=== PATIENT | female | born 1980 | race Hispanic/Latino ===

== ENCOUNTER 2022-02-14 10:35 | Day surgery (SDC) | payer OTHER ==
[2022-02-12 13:09] LABS: Hematocrit 49.5 % (30.3-42.9); Hemoglobin 16.9 gm/dl (10.1-14.3); Mean Corpuscular HGB Conc 34 % (30-34); Mean Corpuscular Volume 101 fl (79-97); Platelet Count 202 K/mm3 (140-440); Red Blood Count 4.89 M/mm3 (3.65-5.03); Red Cell Distribution Width 13.8 % (13.2-15.2)
[2022-02-12 13:27] LABS: Blood Urea Nitrogen 14 mg/dL (7-17); Calcium 8.8 mg/dL (8.4-10.2); Hemolysis Index 16
[2022-02-12 14:06] LABS: BUN/Creatinine Ratio 20
[~2022-02-14 10:35] MED LIST: LACTATED RINGERS 1,000 ML IV SCH
[2022-02-14] MEDS ORDERED: SCOPOLAMINE TRANSDERMAL PATCH 72 HR TD ONE (11:26)
[2022-02-14] MEDS ORDERED: oxyCODONE /ACETAMINOPHEN 5-325MG TAB PO PRN (11:37)
[2022-02-14] MEDS ORDERED: HYDROmorphone 0.5 MG/0.5 ML INJ IV PRN (11:37)
[2022-02-14] MEDS ORDERED: ONDANSETRON 4 MG/2 ML INJ IV PRN (11:37)
--- NOTE | 2022-02-14 11:38 | Anesthesia Day of Surgery ---
Anesthesia Day of Surgery - Day of Surgery Patient Examined: Yes Patient H&P Reviewed: Yes Patient is NPO: Yes Beta Blockers: No Cardiac Clearance: No (n/a) Pulmonary Clearance: No (n/a) Shawn's Test: N/A (patient edentulous upper/lower; mallampati II)
--- NOTE | 2022-02-14 11:42 | Anesthesia Consultation ---
Anesthesia Consult and Med Hx Date of service: 02/14/22 - Airway Anesthetic Teeth Evaluation: Edentulous ROM Head & Neck: Adequate Mental/Hyoid Distance: Adequate Mallampati Class: Class II Intubation Access Assessment: Good - Pulmonary Exam CTA: Yes (will take inhaler pre-op) - Cardiac Exam Cardiac Exam: No Murmur - Pre-Operative Health Status ASA Pre-Surgery Classification: ASA3 Proposed Anesthetic Plan: General - Pulmonary Hx Smoking: Yes (SMALL CIGARS- APPROX 10 A DAY; last cigar today DOS) Hx Asthma: Yes (USED INHALER LAST SAT. 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) Hx Peripheral Vascular Disease: No - Central Nervous System Hx Neuromuscular Disorder: No Hx Seizures: No CVA: No Hx Back Pain: Yes (CHRONIC PAIN) Hx Psychiatric Problems: Yes (PTSD,OCD) - Gastrointestinal Hx Ulcer: No Hx Gastroesophageal Reflux Disease: Yes (takes omeprazole; last dose last night 02/13/22) - Endocrine Hx Renal Disease: No Hx End Stage Renal Disease: No Hx Cirrhosis: No Hx Liver Disease: No Hx Insulin Dependent Diabetes: No Hx Non-Insulin Dependent Diabetes: No Hx Thyroid Disease: No Hx Hypothyroidism: No Hx Hyperthyroidism: No - Hematic Hx Anemia: No Hx Sickle Cell Disease: No - Other Systems Hx Alcohol Use: Yes (OCC.) Hx Substance Use: No Hx Cancer: No Hx Obesity: No
[2022-02-14] MEDS ORDERED: SCOPOLAMINE TRANSDERMAL PATCH 72 HR TD NR (13:00)
[2022-02-14] MEDS ORDERED: propofoL 200 MG/20 ML VIAL IV ONE (14:02)
[2022-02-14] MEDS ORDERED: LIDOCAINE MPF (2%) 20 MG/1 ML VIAL 5 ML ONE (14:02)
[2022-02-14] MEDS ORDERED: HYDROmorphone 1 MG/1 ML INJ ONE (14:02)
[2022-02-14] MEDS ORDERED: fentaNYL 100 MCG/2 ML INJ ONE (14:02)
[2022-02-14] MEDS ORDERED: dexAMETHasone 20 MG/5 ML VIAL ONE (14:07)
[2022-02-14] MEDS ORDERED: PHENAZOPYRIDINE 200 MG TAB PO ONE ×2 (15:36→17:00)
--- NOTE | 2022-02-14 15:39 | Post Operative Note ---
Date of procedure: 02/14/22 Pre-op diagnosis: pain Post-op diagnosis: same Findings: dec capacity Procedure: cysto rpg hydro bx Anesthesia: GETA Surgeon: MICHELLE HARDING Pathology: list (bladder) Specimen disposition: to lab Condition: stable Disposition: PACU
--- NOTE | 2022-02-14 15:41 | Discharge Summary ---
Short Stay Discharge Plan Activity: no restrictions, other (no straining ) Weight Bearing Status: Full Weight Bearing Diet: low cholesterol, low salt Wound: open to air Follow up with: Arin TIRADO MD [Other] - 7 Days MICHELLE HARDING MD [Staff Physician] - 14 Days
[2022-02-14 16:04] VITALS: BP 131/77
--- NOTE | 2022-02-14 17:24 | Fluoroscopy Report ---
Retrograde urography INDICATION: History of flank pain IMPRESSION: Retrograde contrast is identified filling both ureters without obvious filling defect/obs truction. Fluoroscopy time: 10 seconds. Fluoroscopic images: 3. Signer Name: Gilberto Benitez MD Signed: 02/14/2022 5:19 PM Workstation Name: [id number]
--- NOTE | 2022-02-14 19:03 | Operative Report ---
DATE OF SURGERY: 02/14/2022 PREOPERATIVE DIAGNOSES: Rule out interstitial cystitis, chronic bladder pain. POSTOPERATIVE DIAGNOSES: Rule out interstitial cystitis, chronic bladder pain, no glomerulations, small capacity bladder, history of smoking. PROCEDURES: Cystoscopy, retrograde and hydrodistention x2, random bladder biopsy. SURGEON: Dr. Marvin Schwartz. ANESTHESIA: General. FINDINGS: This is a woman who has chronic pain with voiding and with acidic foods. She now presents for cystoscopic evaluation. DESCRIPTION OF PROCEDURE: The patient was brought to operating room and placed on the operating table. Following induction of anesthesia, placed in lithotomy position, prepped and draped in usual sterile fashion. Cystourethroscopy showed a slightly small bladder first hydrodistention was approximately 620 mL, second was about 700. There were no glomerulations at all. Bladder was well visualized with 30 and 70-degree lenses. Retrograde showed good filling, good drainage. No persistent filling defects. Random biopsy was done and cauterized. The patient tolerated the procedure well and brought to recovery in stable condition. TID: [id number] RECEIPT: [id number] DONG/FRANCES
== END 2022-02-14 16:30 | disposition home or self-care (01) ==
LOC: OR 10:35
PROVIDERS: ATTEND Urology
DX: N30.81 Other cystitis with hematuria (principal); Z20.822 Contact with and (suspected) exposure to COVID-19; R39.82 Chronic bladder pain; G43.909 Migraine, unspecified, not intractable, without status migrainosus; J45.909 Unspecified asthma, uncomplicated; K21.9 Gastro-esophageal reflux disease without esophagitis; M06.9 Rheumatoid arthritis, unspecified; F41.9 Anxiety disorder, unspecified; F17.210 Nicotine dependence, cigarettes, uncomplicated; Z88.2 Allergy status to sulfonamides; Z88.5 Allergy status to narcotic agent; Z88.0 Allergy status to penicillin; Z79.899 Other long term (current) drug therapy; Z98.890 Other specified postprocedural states; Z87.440 Personal history of urinary (tract) infections; Z72.89 Other problems related to lifestyle
CPT/HCPCS: 36415; 52204; 74420; 80048; 85027; 88305; J1100; J1170; J1956; J2405; J2704; J3010; J7120; U0003